=== PATIENT | male | born 1985 | race African-American/Black ===

== ENCOUNTER 2020-03-22 04:39 | Emergency (ER) | payer MEDICAID ==
[~2020-03-22] VITALS: Ht 172.7 cm; Wt 83.9 kg
[~2020-03-22 04:39] MED LIST: ALBUPOW26
[2020-03-22 06:47] VITALS: BP 137/86
[2020-03-22] MEDS ORDERED: IBUPROFEN 800 MG TAB PO ONE (07:30)
== END 2020-03-22 07:45 | disposition home or self-care (01) ==
LOC: ER 04:39
DX: S93.401A Sprain of unspecified ligament of right ankle, initial encounter (principal); X58.XXXA Exposure to other specified factors, initial encounter; Y93.89 Activity, other specified; Y92.89 Other specified places as the place of occurrence of the external cause; Y99.8 Other external cause status
CPT/HCPCS: 73610